=== PATIENT | female | born 1965 | race Two or more races ===

== ENCOUNTER 2017-08-23 11:21 | Emergency (ER) | END 2017-08-23 20:34 | disposition short-term general hospital (02) ==

== ENCOUNTER 2017-12-20 10:02 | Emergency (ER) | END 2017-12-20 10:54 | disposition home or self-care (01) ==

== ENCOUNTER 2018-04-07 10:54 | Emergency (ER) | END 2018-04-07 11:20 | disposition home or self-care (01) ==

== ENCOUNTER 2018-05-25 15:58 | Emergency (ER) | END 2018-05-25 18:02 | disposition home or self-care (01) ==